=== PATIENT | female | born 1995 | race Caucasian/White ===

== ENCOUNTER 2024-11-10 14:14 | Outpatient (AMB) | payer OTHER, SELFPAY ==
--- NOTE | 2024-11-10 14:17 | A.OFFPC_ITS ---
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 Required: No Accompanied by: Self / Same As Patient Allergies No Known Allergies Allergy (Verified 11/10/24 14:20) Medication List - Last Reconciled 11/10/24 by AMY Bartlett ascorbate calcium (vitamin C) 500 mg PO BID cholecalciferol (vitamin D3) 25 mcg PO DAILY duloxetine 60 mg PO DAILY folic acid 1 mg PO DAILY gabapentin Take 2 capsules every morning, 2 capsules in the afternoon, and 3 capsules at bedtime metronidazole 0.75% 1 appl topical BID multivitamin 1 tab PO DAILY omeprazole 40 mg PO DAILY thiamine HCl (vitamin B1) 100 mg PO DAILY Tobacco use date assessed: 11/10/24 Dental Screening Dental Screen Date: 11/10/24 Did you have a dental visit in the last 12 months?: No Did you have a dental problem in the last 6 months where you did not have access to dental care?: No Was dental information given to patient?: No HPI HPI Comments History of Present Illness Details 21-year-old female with history of gerd, depression, history of liver failure, uveitis presenting to the office today for annual physical exam and to [facility]. She has not been seen by any provider in years- last PCP in [place]. She recently moved back to the area from the [facility] and is currently residing with her aunt and uncle. Former cigarette smoker, quit 3 years ago, smoked for 7 years. Smokes and uses edibles MJ. NO illicit drugs. No exercise, occasionally healthy diet. 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 No cirrhosis. Has not drank since August. Had been drinking on the weekends, unsure how much but would black out, every weekend. Worsened after her mother past end of June. She had been following with a b2b sales representative at [facility] but desires to follow with a more local GI. No right upper quadrant pain, nausea, vomiting, bowel changes, jaundice, confusion. Neuropathy-bilateral feet following hospitalization for liver failure. On duloxetine and gabapentin Depression/grief- was coping using alcohol. Has now moved in with aunt and uncle who are good support. Duloxetine is helping her depression somewhat but is still scoring on the PHQ-9. Passive SI, no plan. Is looking to follow with a psychiatrist but has not yet found 1. 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 No sore throat, nasal congestion, rhinorrhea, sinus pain, ear pain. No hearing loss Neck - no adenopathy Cardiovascular: No chest pain, palpitations, or leg edema Respiratory: No shortness of breath, wheezing, cough Breast: No pain, palpable lumps, nipple inversion GI: No dysphagia, odynophagia, globus sensation. No abdominal pain, nausea, vomiting, diarrhea, constipation, melena, hematochezia : No dysuria, hematuria, increased urinary frequency, decreased urinary output. DIAMOND CLEANER: No abn vaginal bleeding or discharge MSK: No myalgia, back pain, arthralgias Neuro: No headaches, weakness, paresthesias Psych: no depression/anxiery. No AH/VH. No SI/HI Skin: No rashes or lesions EXAM: Constitutional - Awake and Alert, No apparent distress Eyes - PERRLA, EOMI. Anicteric Ears - external ears normal, canals clear, TMs intact and pearly olson with good cone of light Nose- septum midline, nares clear, no sinus tenderness Mouth/throat- mucosa moist, tongue and uvula midline, no erythema/edema or tonsillar adenopathy. Neck-trachea midline, thyroid symmetric without palpable nodules, no adenopathy Cardiovascular - S1S2, RRR, No edema Respiratory - Normal lung expansion, Normal respiratory effort, No respiratory distress, CTA bilaterally Gastrointestinal - NT / ND; +BS; No rebound or guarding - No CVA tenderness Extremities - no calf tenderness bilaterally, no swelling Musculoskeletal - Normal inspection, normal ROM Skin - Warm/Dry, no concerning lesions. 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 Alcohol abuse Liver failure GERD (gastroesophageal reflux disease) Surgical History (Updated 11/10/24 @ 14:40 by AMY Bartlett) No pertinent past surgical history Family History (Updated 11/10/24 @ 14:41 by AMY Bartlett) Mother Early onset Alzheimer dementia Alcoholic CAD (coronary artery disease) Father CAD (coronary artery disease) Paternal Grandmother Lung cancer Pancreatic cancer Paternal Grandmother Breast cancer Skin cancer Social History Housing: House Patient Tobacco Use Status: Former Tobacco user (Quite in 2022) Tobacco use type: Cigarette Years Smoked: 7 years e-Cigarette/Vaping Use: Currently Using service: No Current occupational status: employed Cognitive needs: No Hearing needs: No Vision needs: Yes (Rx glasses) Questionnaire PHQ-9 Over the last 2 weeks, how often have you been bothered by any of the following problems? 1. Little interest or pleasure in doing things: more than half the days 2. Feeling down, depressed, or hopeless: several days 3. Trouble falling or staying asleep, or sleeping too much: nearly every day 4. Feeling tired or having little energy: nearly every day 5. Poor appetite or overeating: nearly every day 6. Feeling bad about yourself - or that you are a failure or have let yourself or your family down: nearly every day 7. Trouble concentrating on things, such as reading the newspaper or watching television: several days 8. Moving or speaking so slowly that other people could have noticed. Or the opposite - being so fidgety or restless that you have been moving around a lot more than usual: more than half the days 9. Thoughts that you would be better off or of hurting yourself in some way: several days Total score: 19 Depression Screening Interpretation: Positive Depression Screening Done: Yes 16160 - PHQ-9 Billing: Yes Source: Developed by Shante ChappellW. Franck, Doroteo Mishra and colleagues, with an educational chester from [employer]. ANN-MARIE-7 AMB Questionnaire ANN-MARIE-7 Feeling nervous, anxious, or on edge: 3 = Nearly every day Not being able to stop or control worryin = Nearly every day Worrying too much about different things: 3 = Nearly every day Trouble relaxin = Nearly every day Being so restless that it is hard to sit still: 3 = Nearly every day Becoming easily annoyed or irritable: 3 = Nearly every day Feeling afraid as if something awful might happen: 3 = Nearly every day Total ANN-MARIE-7 score (0-4 normal; 5-9 mild; 10-14 moderate; 15-21 severe): 21 Source: Developed by Drs. Brock Duke, Doroteo Sky and colleagues, with an educational chester from [employer]. Physical exam (Primary Care) Vital Signs: Last Vital Signs Temp 97.8 F 11/10/24 14:24 Pulse 102 H 11/10/24 14:24 Resp 14 11/10/24 14:24 BP 92/54 L 11/10/24 14:24 Pulse Ox 99 11/10/24 14:24 Oxygen Delivery Method Room Air 11/10/24 14:24 BMI result Body Mass Index 22.5 Tobacco/Smoking Status: Tobacco use Status Tobacco use date assessed 11/10/24 11/10/24 14:26 Patient Tobacco Use Status Former Tobacco user (Quite 11/10/24 14:26 in 2022) Tobacco use type Cigarette 11/10/24 14:26 e-Cigarette/Vaping Use Currently Using 11/10/24 14:26 Depression Screening Interpretation: Positive Coding Level of Care Code Est Pt Level 4 (43410) New Pt Prev Care 18-39yr(45621 Diagnoses Routine medical exam Z00.00 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 Refer to Gastroenterology. Will check ultrasound of the right upper quadrant as well as liver panel continue with alcohol cessation (4) Lower extremity neuropathy: Code(s): G57.90 - Unspecified mononeuropathy of unspecified lower limb Category: Medical Plan: Continue gabapentin, neuropathy (5) Alcohol abuse: Code(s): F10.10 - Alcohol abuse, uncomplicated Category: Social Hx Plan: In early remission,, ended on abstinence. Encouraged ongoing abstinence (6) Depression: Code(s): F32.A - Depression, unspecified Category: Medical Plan: PHQ 9 score Increase duloxetine to 60 mg ER. Recommend seeking out counselor and psychiatri st. Currently with passive SI, no plan. Should symptoms worsen go to the ER. Plan Routine screening labs as ordered below Referred to gynecological assistant Continue following for annual skin exams and use sun protection Annual eye exams Wear seat belt in car Recommend regular exercise and healthy diet Follow-up in 1 month to follow-up on depression Orders: Orders Complete Blood Count Auto Diff Today K21.9 - Gastro-esophageal reflux disease without esophagitis, Z00.00 - Encounter for general adult medical examination without abnormal findings TSH reflex Free T4 Today K21.9 - Gastro-esophageal reflux disease without esoph agitis, Z00.00 - Encounter for general adult medical examination without abnormal findings Basic Metabolic Panel Today K21.9 - Gastro-esophageal reflux disease without esophagitis, Z00.00 - Encounter for general adult medical examination without abnormal findings Lipid Panel Today K21.9 - Gastro-esophageal reflux disease without esophagitis, Z00.00 - Encounter for general adult medical examination without abnormal findings Liver Panel Today K21.9 - Gastro-esophageal reflux disease without esophagitis, Z00.00 - Encounter for general adult medical examination without abnormal findings US abdomen limited Today F10.10 - Alcohol abuse, uncomplicated, K72.90 - Hepatic failure, unspecified without coma Referrals PSYCHOLOGY LECTURER Referral Z12.4 - Encounter for screening for malignant neoplasm of cervix Ophthalmology Referral H20.9 - Unspecified iridocyclitis, M08.90 - Juvenile arthritis, unspecified, unspecified site Gastroenterology Referral F10.10 - Alcohol abuse, uncomplicated, K72.90 - Hepatic failure, unspecified without coma Medications: New duloxetine 60 mg PO DAILY 90 caps 1RF metronidazole 0.75% 1 appl topical BID 45 grams 2RF Patient Instructions: Check psychology today dot [employer] for a list of counselors and psychiatrists in the area who are accepting patients
[2024-11-10 14:24] VITALS: BP 92/54; PULSE 102; RESP 14; TEMP 36.6; O2SAT 99; BMI 22.5
== END 2024-11-10 14:58 | disposition home or self-care (01) ==
LOC: HO.HMCHD 14:15
PROVIDERS: PCP Physician Assistant; Visit Provider Physician Assistant
DX: Z00.00 Encounter for general adult medical examination without abnormal findings (principal); H20.9 Unspecified iridocyclitis; M08.90 Juvenile arthritis, unspecified, unspecified site; K72.90 Hepatic failure, unspecified without coma; G57.90 Unspecified mononeuropathy of unspecified lower limb; F10.10 Alcohol abuse, uncomplicated; F32.A Depression, unspecified

== ENCOUNTER → 2024-11-10 14:14 | Outpatient (BNVA) | payer OTHER, SELFPAY | PROVIDERS: PCP Physician Assistant; Visit Provider Physician Assistant | DX: Z00.00 Encounter for general adult medical examination without abnormal findings (principal); Z76.89 Persons encountering health services in other specified circumstances; H20.9 Unspecified iridocyclitis; M08.90 Juvenile arthritis, unspecified, unspecified site; K72.90 Hepatic failure, unspecified without coma; G57.90 Unspecified mononeuropathy of unspecified lower limb; F10.10 Alcohol abuse, uncomplicated; F32.A Depression, unspecified; Z79.899 Other long term (current) drug therapy; Z13.31 Encounter for screening for depression | CPT/HCPCS: 96127; 99212; 99385 ==

== ENCOUNTER 2024-11-23 19:52 | Emergency (ER) | payer OTHER, SELFPAY ==
[2024-11-23 19:56] VITALS: BP 132/80; PULSE 102; RESP 18; TEMP 36.6; O2SAT 98; BMI 22.7
--- NOTE | 2024-11-23 20:02 | ED_ITS ---
HPI - General Adult General Chief complaint: ETOH/Substance Use Stated complaint: ETOH (liver failure) Time Seen by Provider: 11/23/24 21:56 Related Data Home Medications ?Medication ?Instructions ?Recorded ?Confirmed ascorbate calcium (vitamin C) 500 500 mg PO BID 11/10/24 mg tablet cholecalciferol (vitamin D3) 25 25 mcg PO DAILY 11/10/24 mcg (1,000 unit) tablet folic acid 1 mg tablet 1 mg PO DAILY 11/10/2411/10 gabapentin 100 mg capsule See Rx Instructions .Route . COMPLEX 11/10/24 11/10/24 multivitamin 1 tab PO DAILY 11/10/2410/30 omeprazole 40 mg capsule,delayed 40 mg PO DAILY 11/10/24 release thiamine HCl (vitamin B1) 100 mg 100 mg PO DAILY 11/1011/10/24 tablet Previous Rx's ?Medication ?Instructions ?Recorded duloxetine 60 mg capsule,delayed 60 mg PO DAILY #90 ca ps 11/10/24 release sprinkle metronidazole 0.75 % topical gel 1 appl topical BID #4 5 grams 11/10/24 Allergies Allergy/AdvReac Type Severity Reaction Status Date / Time No Known Allergies Allergy Verified 11/23/24 20:03 [facility] Past Medical History 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 Alcohol abuse Liver failure GERD (gastroesophageal reflux disease) Surgical History No pertinent past surgical history Family History Family History Mother Early onset Alzheimer dementia Alcoholic CAD (coronary artery disease) Father CAD (coronary artery disease) Paternal Grandmother Lung cancer Pancreatic cancer Paternal Grandmother Breast cancer Skin cancer Social History Social History Housing: House Patient Tobacco Use Status: Former Tobacco user Tobacco use type: Cigarette Years Smoked: 7 years Smoked in Last 30 Days: No e-Cigarette/Vaping Use: Currently Using Use of substances other than those prescribed or required for medical reasons: Yes Substance Use Type: Marijuana Substance Use Frequency: Daily Advance Directives: No Advance Directives Information Provided: Yes Do you have a plan to hurt others: No Plan service: No Current occupational status: employed Cognitive needs: No Hearing needs: No Vision needs: Yes (Rx glasses) Physical Exam ED Vital Signs: Vital Signs - 24 hr 11/23/24 19:56 11/23/24 21:45 11/23/24 23:56 Temperature 97.8 F Pulse Rate 102 H 99 111 H Respiratory Rate 18 17 Blood Pressure 132/80 103/63 98/53 L Pulse Oximetry 98 99 Oxygen Delivery Method Room Air Room Air 11/24/24 01:41 11/24/24 04:35 Temperature 97.9 F 98.1 F Pulse Rate 99 90 Respiratory Rate 14 14 Blood Pressure 99/53 L 95/54 L Pulse Oximetry 98 98 Oxygen Delivery Method Room Air Room Air BMI result Body Mass Index 22.7 Course Course Course Narrative: This is an RME: Additional HPI, ROS, PE not included below will be deferred to primary provider. RME assessment and note performed by: Chani Russell PA-C This is a [id number]-female who presents to the ER accompanied by her uncle with concerns of etoh abuse. Last drink was yesterday. She was recently hospitalized at [facility] for 2 weeks and liver failure due alcohol, no cirrhosis. no other also substances. Plan: Labs, UA, further ER evaluation. Medications Administered Discontinued Medications Generic Name Dose Route Start Last Admin Trade Name Freq PRN Reason Stop Dose Admin Sodium Chloride 1,000 mls @ 999 mls/hr 11/23/24 23:45 11/24/24 02:24 Ns IV 11/24/24 00:45 Infused .Q1H1M [facility] Infusion Sodium Chloride 1,000 mls @ 999 mls/hr 11/23/24 23:45 11/24/24 02:30 Ns IV 11/24/24 00:45 Infused .Q1H1M [facility] Infusion Medical Decision Making Medical Decision Making MDM Narrative: The care team evaluated the patient. The patient is not interested in going to detox other than in [place]. There are no beds available. Patient was given phone number so she can make her own phone calls. Patient denies SI or HI, patient is not on a Section 12 The care team evaluated the patient. Patient does not qualify for detox. Patient drinks 1 to 2 times a week, no withdrawal symptoms. Patient can not be discharged. The care team we will refer to Linda My interpretation of labs: No significant abnormality in patient's hematology or chemistry Patient's potassium 3.1, was repleted with p.o. potassium ETOH level 372 Differential Diagnosis Differential Diagnoses: The differential diagnosis associated with the presentation includes (Alcohol intoxication, alcohol dependence, polysubstance abuse) Admission/Observation Consideration of admission/observation: Escalation of care including admission/observation considered (Admission/detox was considered) Consult Healthcare Provider Management of the patient was discussed with: Behavioral Health Provider Lab Data [facility] Lab Attestation statement: I reviewed the patient's lab results. 11/23/24 20:19 11/24/24 02:21 Labs: Lab Results 11/23/24 11/24/24 Range/Units 20:19 02:21 WBC 7.4 (4.8-10.8) X10*3/uL RBC 3.81 L (4.20-5.50) X10*6/uL Hgb 11.9 L (12.0-16.0) g/dl Hct 34.8 L (37.0-47.0) % MCV 91.3 (80.0-98.0) fL MCH 31.2 (27.0-33.0) pg MCHC 34.2 (31.0-35.0) g/dl RDW 13.2 (11.0-16.0) % Plt Count 178 (160-400) X10*3/uL MPV 8.6 L (9.4-12.3) fL Immature Gran % (Auto) 0.3 (0.0-0.4) % Neut % (Auto) 60.3 (45-73) % Lymph % (Auto) 29.2 (20-40) % [place] % (Auto) 9.2 (2-11) % Eos % (Auto) 0.1 (0-4) % Baso % (Auto) 0.9 (0-2) % Lymph # (Auto) 2.2 (1.2-4.9) X10*3/uL [place] # (Auto) 0.7 (0.1-1.2) X10*3/uL Eos # (Auto) 0.0 (0.0-0.4) X10*3/uL Baso # (Auto) 0.1 (0.0-0.2) X10*3/uL Abs Immat Gran (auto) 0.02 (0.00-0.03) X10*3/uL Absolute Neuts (auto) 4.5 (2.0-8.3) x10*3/uL Absolute Nucleated RBC 0.000 (0.0-0.012) X10*3/uL Nucleated RBC % (auto) 0.0 (0.0-0.2) /100WBC Sodium 147 H 148 H (135-145) mmol/L Potassium 3.5 3.1 L (3.3-5.1) mmol/L Chloride 105 109 H (96-108) mmol/L Carbon Dioxide 25 25 (22-29) mmol/L Anion Gap 21 H 17 (12-20) BUN 3 L 3 L (9-16) mg/dL Creatinine 0.62 0.50 (0.5-1.4) mg/dL Estim Creat Clear Calc 101.9 126.4 Estimated GFR > 60 > 60 Random Glucose 126 H 92 (60-115) mg/dL Calcium 9.5 8.4 D (8.4-10.2) mg/dL Magnesium 1.6 (1.6-2.6) mg/dL Total Bilirubin 1.8 H (0.0-1.0) mg/dL Direct Bilirubin 1.1 H (0.0-0.5) mg/dL AST 66 H (5-31) U/L ALT 20 (0-31) U/L Alkaline Phosphatase 112 (39-117) U/L Total Protein 7.5 (6.5-8.0) g/dL Albumin 4.4 (3.5-5.0) g/dL Lipase 61 (8-78) U/L Beta HCG, Quant < 2 mIU/mL Ethyl Alcohol 372 H* mg/dL Critical Care Time Critical Care Time Critical Care Time: Yes Total Critical Care Time: 35 Attestation: I have personally provided critical care time. Time includes review of lab data, radiology results, discussion with consultants, and monitoring for potential decompensation. Intervention performed as documented. Discharge Plan Discharge Clinical Impression: Alcohol abuse Patient Disposition: Home, Self-Care Instructions: Abuse of Alcohol (DC) Additional Instructions: Alcohol use disorder You were seen in the Emergency Department today for treatment of alcohol use disorder.? You may have been given medications to help with your withdrawal symptoms.? Please do not drink alcohol with them. This is very dangerous and can cause respiratory depression or other adverse reactions depending on the medication. If you would like to cut down or stop your alcohol use please consider calling our outpatient Addiction Treatment office:? [facility] (M-F 9a-5p) [address] [place] [address] [address] You have also been given a list of treatment providers in the area that can assist as well.? If you experience seizures, vomiting blood, black stools, falls, severe headache, chest pain, fevers, trouble breathing, hallucinations or any other concerns you need to call 911 or seek immediate care. Please stay hydrated. Prescriptions: No Action multivitamin Tablet 1 tab PO DAILY thiamine HCl (vitamin B1) 100 mg tablet 100 mg PO DAILY omeprazole 40 mg capsule,delayed release(DR/EC) 40 mg PO DAILY ascorbate calcium (vitamin C) 500 mg tablet 500 mg PO BID folic acid 1 mg tablet 1 mg PO DAILY gabapentin 100 mg capsule See Rx Instructions .ROUTE .COMPLEX Rx Instructions: Take 2 capsules every morning, 2 capsules in the afternoon, and 3 capsules at bedtime cholecalciferol (vitamin D3) 25 mcg (1,000 unit) tablet 25 mcg PO DAILY metronidazole 0.75 % gel 1 appl topical BID Qty: 45 2RF duloxetine 60 mg capsule, delayed rel sprinkle 60 mg PO DAILY Qty: 90 1RF Referrals: [facility] [Physician, Medical] Referral Note: Please go to detox as per recovery team Print Language: German
[2024-11-23 20:24] LABS: MANUAL DIFF FLAG NO
[2024-11-23 20:25] LABS: Hematocrit 34.8 % (37.0-47.0); Hemoglobin 11.9 g/dl (12.0-16.0); Imm Gran Abs Auto 0.02 X10*3/uL (0.00-0.03); Imm Gran Pct Auto 0.3 % (0.0-0.4); Lymphocytes Absolute Auto 2.2 X10*3/uL (1.2-4.9); Mean Corpuscular HGB Conc 34.2 g/dl (31.0-35.0); Mean Corpuscular Hemoglobin 31.2 pg (27.0-33.0); Mean Corpuscular Volume 91.3 fL (80.0-98.0); NRBC Abs Auto 0.000 X10*3/uL (0.0-0.012); NRBC Pct Auto 0.0 /100WBC (0.0-0.2); Platelet Count 178 X10*3/uL (160-400); Red Blood Count 3.81 X10*6/uL (4.20-5.50); White Blood Count 7.4 X10*3/uL (4.8-10.8)
[2024-11-23 20:46] LABS: Alanine Aminotransferase 20 U/L (0-31); Albumin Level 4.4 g/dL (3.5-5.0); Alkaline Phosphatase 112 U/L (39-117); Anion Gap 21 (12-20); Aspartate Amino Transferase 66 U/L (5-31); Blood Urea Nitrogen 3 mg/dL (9-16); Calcium 9.5 mg/dL (8.4-10.2); Carbon Dioxide 25 mmol/L (22-29); Chloride 105 mmol/L (96-108); Creatinine Clr Calc Pharmacy 101.9; Estimated Glomerular Filt Rate > 60; Lipase 61 U/L (8-78); Magnesium 1.6 mg/dL (1.6-2.6); Potassium 3.5 mmol/L (3.3-5.1); Sodium 147 mmol/L (135-145); Total Protein 7.5 g/dL (6.5-8.0)
[2024-11-23 21:45] VITALS: BP 103/63; PULSE 99; RESP 17; O2SAT 99
--- NOTE | 2024-11-23 23:37 | ED.ALCOHOL ---
HPI - Alcohol General Chief Complaint: ETOH/Substance Use Stated Complaint: ETOH (liver failure) Time Seen by Provider: 11/23/24 21:56 History of Present Illness HPI narrative: Patient is 29 years old with a history of alcohol abuse. Presented today with having been drinking. Patient denies any suicidal homicidal ideation denies any other recreational drugs. Wants to go to detox. Just finished drinking today. Came in for further evaluation. Related Data Home Medications ?Medication ?Instructions ?Recorded ?Confirmed ascorbate calcium (vitamin C) 500 500 mg PO BID 11/10/24 11/10/24 mg tablet cholecalciferol (vitamin D3) 25 25 mcg PO DAILY 11/10/24 11/10/24 mcg (1,000 unit) tablet folic acid 1 mg tablet 1 mg PO DAILY 11/10/24 11/10/24 gabapentin 100 mg capsule See Rx Instructions .Route .COMPLEX 11/10/24 11/10/24 multivitamin 1 tab PO DAILY 11/10/24 11/10/24 omeprazole 40 mg capsule,delayed 40 mg PO DAILY 11/10/24 11/10/24 release thiamine HCl (vitamin B1) 100 mg 100 mg PO DAILY 11/10/24 11/10/24 tablet Previous Rx's ?Medication ?Instructions ?Recorded duloxetine 60 mg capsule,delayed 60 mg PO DAILY #90 caps 11/10/24 release sprinkle metronidazole 0.75 % topical gel 1 appl topical BID #45 grams 11/10/24 Allergies Allergy/AdvReac Type Severity Reaction Status Date / Time No Known Allergies Allergy Verified 11/23/24 20:03 Review of Systems Review of Systems: Positive EtOH Yes all other systems are reviewed and are negative PMFSH Past Medical History Attestation statement: The following information was validated with the patient. 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 Alcohol abuse Liver failure GERD (gastroesophageal reflux disease) Surgical History No pertinent past surgical history Family History Family History Mother Early onset Alzheimer dementia Alcoholic CAD (coronary artery disease) Father CAD (coronary artery disease) Paternal Grandmother Lung cancer Pancreatic cancer Paternal Grandmother Breast cancer Skin cancer Social History Social History Housing: House Patient Tobacco Use Status: Former Tobacco user Tobacco use type: Cigarette Years Smoked: 7 years Smoked in Last 30 Days: No e-Cigarette/Vaping Use: Currently Using Use of substances other than those prescribed or required for medical reasons: Yes Substance Use Type: Marijuana Substance Use Frequency: Daily Advance Directives: No Advance Directives Information Provided: Yes Do you have a plan to hurt others: No Plan service: No Current occupational status: employed Cognitive needs: No Hearing needs: No Vision needs: Yes (Rx glasses) Physical Exam ED Exam Exam: Appearance: Alert. Oriented X3. No acute distress. Eyes: Pupils equal, round and reactive to light. ENT: Pharynx normal. Neck: Normal inspection. Neck supple. No lymph nodes noted. No crepitus CVS: Normal heart rate and rhythm. Pulses normal. Normal S1 and S2 Respiratory: No respiratory distress. Breath sounds normal. No Wheezing. No rales Abdomen: Soft and nontender. No rigidity. No distention. good BS x4 Skin: Skin warm and dry. Normal skin color. Normal skin turgor. Extremities: No lower extremity edema. Neurovascular intact to all extremities. No Lacerations. No Rash Neuro: Oriented X 3. No motor deficit. No sensory deficit. Moving all extermities. No slurred speech Vital Signs: Vital Signs - 24 hr 11/23/24 19:56 11/23/24 21:45 11/23/24 23:56 Temperature 97.8 F Pulse Rate 102 H 99 111 H Respiratory Rate 18 17 Blood Pressure 132/80 103/63 98/53 L Pulse Oximetry 98 99 Oxygen Delivery Method Room Air Room Air 11/24/24 01:41 11/24/24 04:35 Temperature 97.9 F 98.1 F Pulse Rate 99 90 Respiratory Rate 14 14 Blood Pressure 99/53 L 95/54 L Pulse Oximetry 98 98 Oxygen Delivery Method Room Air Room Air BMI result Body Mass Index 22.7 Course Course Course Narrative: Course Narrative: This is an RME: Additional HPI, ROS, PE not included below will be deferred to primary provider. RME assessment and note performed by: Chani Russell PA-C This is a [id number]-female who presents to the ER accompanied by her uncle with concerns of etoh abuse. Last drink was yesterday. She was recently hospitalized at [facility] for 2 weeks and liver failure due alcohol, no cirrhosis. no other also substances. Plan: Labs, UA, further ER evaluation. Medical Decision Making Medical Decision Making [facility] Narrative: Well-appearing patient's alcohol greater than 370. Now want detox. Not suicidal not homicidal. LFTs are elevated consistent with EtOH. AST is 66 ALT is 20 today. Consistent with drinking. IV fluid was given. No anion gap will get care team to evaluate patient. I reviewed patient's old record including primary care record. Patient was at [facility] for liver failure. Just got out in August did not drink for a while. Recently went back to drinking. Currently in stable condition. Recovery team was consulted. Patient be evaluated for possible detox. The care team evaluated the patient. The patient is not interested in going to detox other than in [place]. There are no beds available. Patient was given phone number so she can make her own phone calls. Patient denies SI or HI, Differential Diagnosis Differential Diagnoses: The differential diagnosis associated with the presentation includes Dehydration, alcohol intoxication Admission/Observation Consideration of admission/observation: Escalation of care including admission/observation considered Lab Data [facility] Lab Attestation statement: I reviewed the patient's lab results. 11/23/24 20:19 11/24/24 02:21 Labs: Lab Results 11/23/24 11/24/24 Range/Units 20:19 02:21 WBC 7.4 (4.8-10.8) X10*3/uL RBC 3.81 L (4.20-5.50) X10*6/uL Hgb 11.9 L (12.0-16.0) g/dl Hct 34.8 L (37.0-47.0) % MCV 91.3 (80.0-98.0) fL MCH 31.2 (27.0-33.0) pg MCHC 34.2 (31.0-35.0) g/dl RDW 13.2 (11.0-16.0) % Plt Count 178 (160-400) X10*3/uL MPV 8.6 L (9.4-12.3) fL Immature Gran % (Auto) 0.3 (0.0-0.4) % Neut % (Auto) 60.3 (45-73) % Lymph % (Auto) 29.2 (20-40) % [place] % (Auto) 9.2 (2-11) % Eos % (Auto) 0.1 (0-4) % Baso % (Auto) 0.9 (0-2) % Lymph # (Auto) 2.2 (1.2-4.9) X10*3/uL [place] # (Auto) 0.7 (0.1-1.2) X10*3/uL Eos # (Auto) 0.0 (0.0-0.4) X10*3/uL Baso # (Auto) 0.1 (0.0-0.2) X10*3/uL Abs Immat Gran (auto) 0.02 (0.00-0.03) X10*3/uL Absolute Neuts (auto) 4.5 (2.0-8.3) x10*3/uL Absolute Nucleated RBC 0.000 (0.0-0.012) X10*3/uL Nucleated RBC % (auto) 0.0 (0.0-0.2) /100WBC Sodium 147 H 148 H (135-145) mmol/L Potassium 3.5 3.1 L (3.3-5.1) mmol/L Chloride 105 109 H (96-108) mmol/L Carbon Dioxide 25 25 (22-29) mmol/L Anion Gap 21 H 17 (12-20) BUN 3 L 3 L (9-16) mg/dL Creatinine 0.62 0.50 (0.5-1.4) mg/dL Estim Creat Clear Calc 101.9 126.4 Estimated GFR > 60 > 60 Random Glucose 126 H 92 (60-115) mg/dL Calcium 9.5 8.4 D (8.4-10.2) mg/dL Magnesium 1.6 (1.6-2.6) mg/dL Total Bilirubin 1.8 H (0.0-1.0) mg/dL Direct Bilirubin 1.1 H (0.0-0.5) mg/dL AST 66 H (5-31) U/L ALT 20 (0-31) U/L Alkaline Phosphatase 112 (39-117) U/L Total Protein 7.5 (6.5-8.0) g/dL Albumin 4.4 (3.5-5.0) g/dL Lipase 61 (8-78) U/L Beta HCG, Quant < 2 mIU/mL Ethyl Alcohol 372 H* mg/dL Independent Historian Clinical information obtained from an independent historian. History obtained from or confirmed by: Other (Family) Chronic Conditions Alcohol intoxication Social Determinants Patient?s care significantly limited by Social Determinants of Health including: Problems related to primary support group Medications Administered Discontinued Medications Generic Name Dose Route Start Last Admin Trade Name Buzz PRN Reason Stop Dose Admin Sodium Chloride 1,000 mls @ 999 mls/hr 11/23/24 23:45 11/24/24 02:24 Ns IV 11/24/24 00:45 Infused .Q1H1M SCOTT Infusion Sodium Chloride 1,000 mls @ 999 mls/hr 11/23/24 23:45 11/24/24 02:30 Ns IV 11/24/24 00:45 Infused .Q1H1M SCOTT Infusion Critical Care Time Critical Care Time Critical Care Time: Yes Total Critical Care Time: 35 Attestation: I have personally provided critical care time. Time includes review of lab data, radiology results, discussion with consultants, and monitoring for potential decompensation. Intervention performed as documented. Discharge Plan Discharge Clinical Impression: Alcohol abuse Patient Disposition: Home, Self-Care Instructions: Abuse of Alcohol (DC) Additional Instructions: Alcohol use disorder You were seen in the Emergency Department today for treatment of alcohol use disorder.? You may have been given medications to help with your withdrawal symptoms.? Please do not drink alcohol with them. This is very dangerous and can cause respiratory depression or other adverse reactions depending on the medication. If you would like to cut down or stop your alcohol use please consider calling our outpatient Addiction Treatment office:? [facility] (M-F [id number]) [address] [facility] [address] You have also been given a list of treatment providers in the area that can assist as well.? If you experience seizures, vomiting blood, black stools, falls, severe headache, chest pain, fevers, trouble breathing, hallucinations or any other concerns you need to call 911 or seek immediate care. Please stay hydrated. Prescriptions: No Action multivitamin Tablet 1 tab PO DAILY thiamine HCl (vitamin B1) 100 mg tablet 100 mg PO DAILY omeprazole 40 mg capsule,delayed release(DR/EC) 40 mg PO DAILY ascorbate calcium (vitamin C) 500 mg tablet 500 mg PO BID folic acid 1 mg tablet 1 mg PO DAILY gabapentin 100 mg capsule See Rx Instructions .ROUTE .COMPLEX Rx Instructions: Take 2 capsules every morning, 2 capsules in the afternoon, and 3 capsules at bedtime cholecalciferol (vitamin D3) 25 mcg (1,000 unit) tablet 25 mcg PO DAILY metronidazole 0.75 % gel 1 appl topical BID Qty: 45 2RF duloxetine 60 mg capsule, delayed rel sprinkle 60 mg PO DAILY Qty: 90 1RF Referrals: [facility] [Physician, Medical] Referral Note: Please go to detox as per recovery team Print Language: Algerian
[2024-11-23 23:56] VITALS: BP 98/53; PULSE 111
[2024-11-24 01:41] VITALS: BP 99/53; PULSE 99; RESP 14; TEMP 36.6; O2SAT 98
[2024-11-24 02:42] LABS: Anion Gap 17 (12-20); Blood Urea Nitrogen 3 mg/dL (9-16); Calcium 8.4 mg/dL (8.4-10.2); Carbon Dioxide 25 mmol/L (22-29); Chloride 109 mmol/L (96-108); Creatinine Clr Calc Pharmacy 126.4; Estimated Glomerular Filt Rate > 60; Potassium 3.1 mmol/L (3.3-5.1); Sodium 148 mmol/L (135-145)
[2024-11-24 04:35] VITALS: BP 95/54; PULSE 90; RESP 14; TEMP 36.7; O2SAT 98
[2024-11-24] MEDS: Potassium Chloride Packet 20 MEQ PACKET 40 MEQ PO (06:41)
[2024-11-24 06:45] VITALS: BP 109/63; PULSE 112; RESP 13; TEMP 36.6; O2SAT 95
[2024-11-24 07:05] VITALS: BP 109/63; PULSE 112; RESP 13; TEMP 36.6; O2SAT 95
--- NOTE | 2024-11-24 21:40 | MHC.CARE ---
RAD Team emailed [facility] referral for this pt. Will follow up next business day.
== END 2024-11-24 07:06 | disposition home or self-care (01) ==
PROVIDERS: Physician Assistant Medical; Emergency Provider Emergency Medicine Emergency Medical Services; PCP Physician Assistant
DX: F10.10 Alcohol abuse, uncomplicated (principal); Y90.8 Blood alcohol level of 240 mg/100 ml or more; R10.2 Pelvic and perineal pain; R11.2 Nausea with vomiting, unspecified; Z79.899 Other long term (current) drug therapy; Z51.81 Encounter for therapeutic drug level monitoring; Z87.891 Personal history of nicotine dependence
CPT/HCPCS: 36415; 80048; 80076; 80307; 83690; 83735; 84702; 85025; 96361; 96374; 99285; J2405; S9485

== ENCOUNTER 2024-11-27 16:26 | Outpatient (AMB) | payer OTHER, SELFPAY ==
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
[2024-11-27 16:33] VITALS: BP 128/80; PULSE 97; O2SAT 98; BMI 23.8
== END 2024-11-27 17:26 | disposition home or self-care (01) ==
LOC: HO.HCC 16:26
PROVIDERS: PCP Physician Assistant; Visit Provider Clinical Nurse Specialist Psychiatric/Mental Health
DX: F10.90 Alcohol use, unspecified, uncomplicated (principal)
CPT/HCPCS: 99203

== ENCOUNTER → 2024-11-27 16:26 | Outpatient (BNVA) | payer OTHER, SELFPAY | PROVIDERS: PCP Physician Assistant; Visit Provider Clinical Nurse Specialist Psychiatric/Mental Health | DX: F10.90 Alcohol use, unspecified, uncomplicated (principal); Z79.899 Other long term (current) drug therapy | CPT/HCPCS: 99202 ==

== ENCOUNTER 2024-12-29 12:53 | Outpatient (AMB) | payer MEDICAID, SELFPAY ==
--- NOTE | 2024-12-29 13:05 | MHC.PC.OV ---
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 Accompanied by: Self / Same As Patient Allergies No Known Allergies Allergy (Verified 12/29/24 13:11) Medication List - Last Reconciled 12/29/24 by AMY Bartlett acamprosate 666 mg (2 x 333 mg) PO TID 30 days ascorbate calcium (vitamin C) 500 mg PO BID bupropion HCl XL (Wellbutrin XL) 150 mg PO QAM cholecalciferol (vitamin D3) 25 mcg PO DAILY duloxetine 60 mg PO DAILY folic acid 1 mg PO DAILY gabapentin Take 2 capsules every morning, 2 capsules in the afternoon, and 3 capsules at bedtime metronidazole 0.75% 1 appl topical BID multivitamin 1 tab PO DAILY omeprazole 40 mg PO DAILY thiamine HCl (vitamin B1) 100 mg PO DAILY Tobacco use date assessed: 12/29/24 Dental Screening Dental Screen Date: 12/29/24 Did you have a dental visit in the last 12 months?: No Did you have a dental problem in the last 6 months where you did not have access to dental care?: No HPI HPI Comments History of Present Illness Details 21-year-old female with history of gerd, depression, history of liver failure, uveitis presenting to the office today for follow-up. 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 No cirrhosis per patient. Has not drank since August. Had been drinking on the weekends, unsure how much but would black out, every weekend. Worsened after her mother past end of June. She had been following with a molecular genetic pathologist at [facility] but desires to follow with a more local GI. She has since been referred to [facility]. Has upcoming ultrasound of the liver, awaiting liver enzymes as she has not yet gotten her labs done. Alcohol use disorder-reports she relapsed about 6 weeks ago. She was seen in our ED but was not admitted. She went to [place] to get into a detox but was not accepted. Since then, she had has had no alcohol. Has been falling with [facility] and is now on Campral. She remains on gabapentin as well. She remains depressed but symptoms have worsened since her relapse. Alcohol was her coping mechanisms. She is following with therapist and taking duloxetine 60 mg daily. Today ann-marie 7 score 11 and PHQ-9 score 19. She has been working with the therapist. She does deny any SI. Has been feeling numb and has been ruminating about her ex-boyfriend. She has been going to [employer] and does reach out to sponsors. She is not following with a psychiatrist yet. She does continue on thiamine and folic acid. She lives with her aunt and uncle who are supportive but only recently transplanted from [facility] so otherwise does not have many supports. She has been experiencing difficulty with her sleep and has poor appetite. Neuropathy-bilateral feet following hospitalization for liver failure. 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 Anicteric Ears - external ears normal, canals clear, TMs intact and pearly olson with good cone of light Nose- septum midline, nares clear, no sinus tenderness Mouth/throat- mucosa moist, tongue and uvula midline, no erythema/edema or tonsillar adenopathy. Neck-trachea midline, thyroid symmetric without palpable nodules, no adenopathy Cardiovascular - S1S2, RRR, No edema Respiratory - Normal lung expansion, Normal respiratory effort, No respiratory distress, CTA bilaterally Gastrointestinal - NT / ND; +BS; No rebound or guarding - No CVA tenderness Extremities - no calf tenderness bilaterally, no swelling Musculoskeletal - Normal inspection, normal ROM Skin - Warm/Dry, no concerning lesions. Erythema on the cheeks bilaterally around the nasolabial fold with dry skin and scattered erythematous papules Neurological - Alert & oriented x3, CN II-XII in tact, 5/5 strength BUE and BLE, 2+ patellar reflexes, sensation intact Psychological - tearful. Depressed mood. 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 Alcohol abuse Liver failure GERD (gastroesophageal reflux disease) Surgical History No pertinent past surgical history Family History (Updated 12/29/24 @ 13:17 by Bryanna Madsen MA) Mother Early onset Alzheimer dementia Alcoholic CAD (coronary artery disease) Mental health disorder Substance abuse Father CAD (coronary artery disease) Paternal Grandmother Lung cancer Pancreatic cancer Paternal Grandmother Breast cancer Skin cancer Father Mental health disorder Social History Housing: House Patient Tobacco Use Status: Current everyday Tobacco user (Quite in 2022) Tobacco use type: Cigarette Years Smoked: 7 years e-Cigarette/Vaping Use: Currently Using (no cigarette, vaping use) Substance Use Type: Marijuana service: No Current occupational status: unemployed Cognitive needs: No Hearing needs: No Vision needs: Yes (Rx glasses) Questionnaire PHQ-9 Over the last 2 weeks, how often have you been bothered by any of the following problems? 1. Little interest or pleasure in doing things: not at all 2. Feeling down, depressed, or hopeless: nearly every day (anxiety ) 3. Trouble falling or staying asleep, or sleeping too much: nearly every day 4. Feeling tired or having little energy: nearly every day 5. Poor appetite or overeating: nearly every day (overeating,craving sugar) 6. Feeling bad about yourself - or that you are a failure or have let yourself or your family down: nearly every day 7. Trouble concentrating on things, such as reading the newspaper or watching television: nearly every day 8. Moving or speaking so slowly that other people could have noticed. Or the opposite - being so fidgety or restless that you have been moving around a lot more than usual: several days 9. Thoughts that you would be better off or of hurting yourself in some way: not at all Total score: 19 Depression Screening Done: Yes 91421 - PHQ-9 Billing: Yes Source: Developed by Drs. Brock Duke, Shante Juárez, Doroteo Mishra and colleagues, with an educational chester from [employer]. Thrive Questionnaire Date Thrive assessed: 12/29/24 I am a: Patient Within the past 12 months, did the food you bought not last and you didn't have the money to get more?: Never true Within the past 12 months, did you worry whether your food would run out before you got money to buy more?: Never true Do you have trouble paying for medicines?: No Do you have trouble getting transportation to medical appointments?: No Do you have trouble paying your heating and electricity bill?: No Do you have trouble taking care of your child, family member or friend?: No Do you have trouble with day-to-day activities such as bathing, preparing meals, shopping, managing finances, etc.?: No Are you currently unemployed and looking for a job?: No Are you interested in more education?: No THRIVE Score: 0 AUDIT C Alcohol Use Questionnaire (AUDIT-C) 1. How often do you have a drink containing alcohol?: Never 3. How often do you have six or more drinks on one occasion?: Never Total Score: 0 ANN-MARIE-7 AMB Questionnaire ANN-MARIE-7 Date ANN-MARIE - 7 assessed: 12/29/24 Feeling nervous, anxious, or on edge: 1 = Several days Not being able to stop or control worryin = Nearly every day Worrying too much about different things: 3 = Nearly every day Trouble relaxin = Nearly every day Being so restless that it is hard to sit still: 1 = Several days Becoming easily annoyed or irritable: 1 = Several days Feeling afraid as if something awful might happen: 3 = Nearly every day Total ANN-MARIE-7 score (0-4 normal; 5-9 mild; 10-14 moderate; 15-21 severe): 15 Source: Developed by Drs. Brock Duke, Shante Juárez, Doroteo Mishra and colleagues, with an educational chester from [employer]. ANN-MARIE-7 Assessment Billing ANN-MARIE-7 Assessment Tool: ANN-MARIE-7 Assessment 30527 Physical exam (Primary Care) Vital Signs: Last Vital Signs Temp 98.7 F 12/29/24 13:06 Pulse 109 H 12/29/24 13:06 BP 116/73 12/29/24 13:06 Pulse Ox 99 12/29/24 13:06 Oxygen Delivery Method Room Air 12/29/24 13:06 BMI result Body Mass Index 22.5 Tobacco/Smoking Status: Tobacco use Status Tobacco use date assessed 12/29/24 12/29/24 13:21 Patient Tobacco Use Status Current everyday Tobacco ( 10/31/25 13:21 Quite in 2022) Tobacco use type Cigarette 12/29/24 13:07 e-Cigarette/Vaping Use Currently Using (no 12/29/24 13:21 cigarette, vaping use) PHQ-9: PHQ-9 Score PHQ-9: Total score 19 12/29/24 13:21 Thrive Assessment: Date of Thrive Assessment Date Thrive assessed 12/29/24 12/29/24 13:21 Coding Level of Care Code Est Pt Level 4 (21051) Complex EM visit Add On G2211 Diagnoses Depression F32.A Alcohol use disorder F10.90 Additional Codes ANN-MARIE-7 Assessment Billing - ANN-MARIE-7 Assessment Tool: ANN-MARIE-7 Assessment 57426 ([id number]) PHQ-9 - 44284 - PHQ-9 Billing: Yes ([id number]) Assessment & Plan Assessment & Plan (1) Depression: Code(s): F32.A - Depression, unspecified Category: Medical Plan: Uncontrolled. No alarm symptoms at this time. We will add Wellbutrin 150 mg extended release to duloxetine 60 mg daily. Continue following with counseling. Advised to go to the ER if symptoms worsen. Did discuss partial hospitalization program but she is concerned about getting a job at this time. We will reach out to the office should she change her mind. She is also given information on mindfulness as well as information on support groups through [facility] (2) Alcohol use disorder: Code(s): F10.90 - Alcohol use, unspecified, uncomplicated Category: Medical Plan: In early remission. Congratulated on 35 days of sobriety which is an achievement despite her recent relapse. Continue taking thiamine and folic acid. Continue following with the [facility] and take Campral as prescribed. Continue with AA and reach out to sponsors Plan Follow-up in the office in 1 month. Advised to have labs previously ordered performed Orders: Referrals FLEET COORDINATOR Referral Z12.4 - Encounter for screening for malignant neoplasm of cervix Medications: New bupropion HCl XL (Wellbutrin XL) 150 mg PO QAM 90 tabs 1RF hydroxyzine HCl 25 mg PO BID PRN 180 tabs 1RF itching Patient Instructions: Support Group: [email or web address] Consider partial hospitalization- reach out to me if you would liek referral Try biotene for dry mouth and get saline nasal spray
[2024-12-29 13:06] VITALS: BP 116/73; PULSE 109; TEMP 37.1; O2SAT 99; BMI 22.5
== END 2024-12-29 14:40 | disposition home or self-care (01) ==
LOC: HO.HMCHD 12:53
PROVIDERS: PCP Physician Assistant; Visit Provider Physician Assistant
DX: F32.A Depression, unspecified (principal); F10.90 Alcohol use, unspecified, uncomplicated

== ENCOUNTER → 2024-12-29 12:53 | Outpatient (BNVA) | payer SELFPAY | PROVIDERS: PCP Physician Assistant; Visit Provider Physician Assistant | DX: K70.40 Alcoholic hepatic failure without coma (principal); F10.90 Alcohol use, unspecified, uncomplicated; F32.A Depression, unspecified | CPT/HCPCS: 96127; 99212 ==